=== PATIENT | female | born 1970 | race Caucasian/White ===

== ENCOUNTER → 2017-01-29 | Outpatient (CLI) | payer OTHER ==
[~2017-01-29] MED LIST: ASPI-84; BLAC160C PO; CETI10TA20 PO; DOCU100T7 PO; ESTR1TAB24; FOLI1TAB57 PO; HYDR-3454 PO; LEVO25TA5 PO; LOSA100T3 PO; LOSA1TAB3; METF500T4 PO; OMEP20TA33 PO; OMG1KC PO; SIMV20TA3 PO
--- NOTE | 2017-01-29 11:19 | Diagnostic Imaging Report ---
INDICATION: Elevated liver enzymes EXAMINATION: Liver ultrasound Liver has increased echogenicity consistent with fatty infiltration. There are no masses seen. Gallbladder is clear with no stones or wall thickening. The common duct is nondilated. Pancreas is obscured by overlying bowel gas. Right kidney appeared normal. There is no ascites. IMPRESSION: Hepatic steatosis. Dictated by: Dictated on workstation # [id number]
== END ==
LOC: RAD 10:26
PROVIDERS: ATTEND Nurse Practitioner Family
DX: K76.0 Fatty (change of) liver, not elsewhere classified (principal); Z86.19 Personal history of other infectious and parasitic diseases
CPT/HCPCS: 76705

== ENCOUNTER → 2019-07-09 | Outpatient (CLI) | payer SELFPAY ==
[~2019-07-09] MED LIST changes: -HYDR-3454 PO; +HYDR-3455 PO; +METF-397 PO; -METF500T4 PO
--- NOTE | 2019-07-09 08:51 | Diagnostic Imaging Report ---
PROCEDURE: US Gallbladder. TECHNIQUE: Multiple real-time grayscale images were obtained over the right upper quadrant in various projections. INDICATION: Epigastric, right upper quadrant abdominal pain. FINDINGS: Grayscale imaging of the gallbladder reveals no intraluminal filling defect. There is no gallbladder wall thickening or pericholecystic fluid. No intra or extrahepatic biliary ductal dilatation is identified. Increased echogenicity in the liver indicates fatty infiltration. There is obscuration of the pancreas due to fatty liver and overlying bowel. No abdominal aorta, inferior vena cava or right renal abnormality is identified and there is no evidence of free fluid. IMPRESSION: Fatty infiltration with otherwise unremarkable gallbladder ultrasound. Dictated by: Dictated on workstation # [id number]
== END ==
LOC: RAD 08:10
PROVIDERS: ATTEND Nurse Practitioner Family
DX: K82.8 Other specified diseases of gallbladder (principal); R10.13 Epigastric pain; R10.11 Right upper quadrant pain
CPT/HCPCS: 76705

== ENCOUNTER → 2019-07-23 | Outpatient (CLI) | payer OTHER ==
[~2019-07-23] MED LIST changes: +CATHETER FLUSH 10 ML SYR IV PRN
--- NOTE | 2019-07-23 15:36 | Diagnostic Imaging Report ---
EXAMINATION: HEPATOBILIARY WITH EJECTION FR. CLINICAL HISTORY: Right upper quadrant abdominal pain. IMAGING TECHNIQUE: Hepatobiliary imaging was performed after the intravenous administration of 5.1 mCi of technetium 99m Choletec. The patient was then given 8 ounces of Ensure by mouth at one hour. Gallbladder ejection fraction was then calculated. COMPARISON: Abdominal ultrasound performed on 07/09/2019. FINDINGS: There is normal clearance of blood pool activity. There is normal hepatic uptake of radiotracer. There is prompt excretion into the bile ducts and biliary tree. Small bowel activity is seen at approximately 15 minutes. Gallbladder activity is seen at approximately 25 minutes and appeared normal as time progressed. Gallbladder ejection fraction is calculated to be 81%. IMPRESSION: Normal hepatobiliary scan without evidence for cystic or common bile duct obstruction. Normal gallbladder ejection fraction of 81 %. Dictated by: Dictated on workstation # [id number]
== END ==
LOC: CARD 10:53
PROVIDERS: ATTEND Nurse Practitioner Family
DX: R10.11 Right upper quadrant pain (principal)
CPT/HCPCS: 78227

== ENCOUNTER → 2019-09-07 | Outpatient (CLI) | payer OTHER ==
[~2019-09-07] MED LIST changes: -CATHETER FLUSH 10 ML SYR IV PRN
--- NOTE | 2019-09-08 17:24 | Diagnostic Imaging Report ---
INDICATION: Routine screening. COMPARISON is made with prior mammogram 05/26/2012. TECHNIQUE: 2-D and 3-D bilateral screening mammography was performed with CAD. FINDINGS: Scattered fibroglandular densities are identified bilaterally. Scattered benign calcifications are noted bilaterally. No mass or malignant appearing microcalcifications are seen. Axillae are unremarkable. IMPRESSION: BI-RADS Category 2. No mammographic features suspicious for malignancy are identified. Dictated by: Dictated on workstation # [id number]
== END ==
LOC: RAD 15:23
PROVIDERS: ATTEND Nurse Practitioner Family
DX: Z12.31 Encounter for screening mammogram for malignant neoplasm of breast (principal)
CPT/HCPCS: 77067